=== PATIENT | female | born 1990 | race Caucasian/White ===

== ENCOUNTER 2024-11-18 20:37 | Emergency (ER) | payer SELFPAY ==
[2024-11-18 20:40] VITALS: BP 142/85
[2024-11-18 21:23] LABS: Hematocrit 17.6 % (37.0-47.0); Hemoglobin 4.9 g/dL (12.0-16.0); Mean Corp Hgb Conc. 27.8 g/dL (33.0-37.0); Mean Corpuscular Volume 67.4 fL (81.0-99.0); Nucleated Red Blood Cells % 0 %; Platelet Count 228 10^3/uL (130-400); Red Cell Dist. Width 25.3 % (11.5-14.5)
[2024-11-18 21:37] VITALS: BP 108/68
[2024-11-18 21:38] VITALS: BMI 31.9
[2024-11-18 21:39] LABS: HCG, Serum Qualitative Screen Negative
[2024-11-18 21:41] LABS: ALT (SGPT) 16 U/L (0-35); AST (SGOT) 24 U/L (14-36); Albumin 4.6 g/dl (3.5-5.0); Alkaline Phosphatase 56 U/L (38-126); Blood Urea Nitrogen 11 mg/dl (7-17); Calcium 9.6 mg/dl (8.4-10.2); Carbon Dioxide 26 mmol/L (22-30); Chloride 102 mmol/L (98-107); Estimated Creatinine Clearance > 125 ml/min; Glucose 93 mg/dl (70-99); Potassium 3.8 mmol/L (3.5-5.1); Sodium 135 mmol/L (135-145); Total Protein 7.7 g/dl (6.3-8.2); eGFR > 60.00
[2024-11-18 22:00] VITALS: BP 117/67
--- NOTE | 2024-11-18 22:09 | ED.GENMED ---
History of Present Illness
General
Chief Complaint: Abnormal Lab Value
Source: patient
Exam Limitations: none
Time Seen by Provider: 11/18/24 21:26
Nursing documentation reviewed up to this point in time: agreed with
History of Present Illness
History of Present Illness:
34-year-old female long history of iron deficiency anemia last transfused 8 years ago had been on iron infusions which she stopped due to allergic reactions, had been on p.o. iron which she stopped has been vegan for some time, she is felt fatigued
for months, had blood work Thursday as part of the health screening for a new job, hemoglobin was low given the ER to be evaluated denies rectal bleeding, denies any excessive menses, has a headache feels little dizzy, no chest pain no shortness of
breath, has required transfusions in the past previously seen by tube winder hand at [facility] does not see them currently, no chest pains no syncope denies
Past History
Past History
ED Past Medical History: Other (Iron deficiency anemia, prior PE not anticoagulated currently)
Social History
Tobacco: Non-smoker
Alcohol: None
Drug: None
Personal:
Living: with family
Employment: Employed
Review of Systems
Review of Systems
All Other Systems: Not applicable
Constitutional: Reports fatigue; Denies fever
EENT: Reports no symptoms
Respiratory: Reports no symptoms; Denies trouble breathing
Cardiac: Denies chest pain, diaphoresis, palpitations or syncope
ABD/GI: Denies abdominal pain, bloody stools or black stools
: Denies bleeding
Neurological: Reports dizzy and headache
Endocrine: Reports no symptoms
Hematologic/Lymphatic: Denies bleeding or bruising
Psychiatric: Reports no symptoms
Phy Exam
Physical Exam
Physical Exam:
Physical Exam
General: Pale appearing female
Neck: No jaundice
Heart: s1/s2 regular rate and rhythm, no murmur. equal radial pulses.
Lungs: no acute respiratory distress. clear bilaterally
Abdomen: Nontender
Neuro: alert and oriented. no focal neurological deficits
Skin: no rash
Psychiatric: well kept. interactive and cooperative
Extremities: no edema.
Course
Orders/Labs/Results
Orders:
Orders
11/18/24 20:48
Test Result ONCE
11/18/24 20:59
Type+Screen Urgent
CBC/With Diff [Complete Blood Count/With Diff] Urgent
CMP [Comprehensive Metabolic Panel] Urgent
Ferritin Urgent
Comment: ADD ON
Folate Urgent
Comment: ADD ON
HCG, Serum Qualitative Screen Urgent
Iron Urgent
Total Iron Binding Urgent
Vitamin B12 Urgent
Comment: ADD ON
11/18/24 21:57
Add On- LAB Urgent
Tests Added?: iron, tibc, ferritin, b12, folate
11/18/24 21:58
Blood Bank Products [* Blood Bank Products] Urgent
's Orders: michelle
Blood Bank Products: *Packed RBC Leuko(PRBC's)
Quantity: 2
Transfuse Today: Yes
Reason: Anemia
Abnormal Lab Results
11/18/24
20:59
RBC 2.61 L 10^6/uL
(4.20-5.40)
Hgb 4.9 L* g/dL
(12.0-16.0)
Hct 17.6 L* %
(37.0-47.0)
MCV 67.4 L fL
(81.0-99.0)
MCH 18.8 L pg
(27.0-31.0)
MCHC 27.8 L g/dL
(33.0-37.0)
RDW 25.3 H %
(11.5-14.5)
% Saturation 14 L %
(20-50)
Ferritin 3.7 L ng/ml
(6.24-137)
Crossmatch IS Only See Detail
11/18/24 20:59
11/18/24 20:59
Vital Signs
Initial and Last Documented VS:
Initial Vital Signs
Temp Pulse Resp BP Pulse Ox
98.8 F 98 18 142/85 100
11/18/24 20:40 11/18/24 20:40 11/18/24 20:40 11/18/24 20:40 11/18/24 20:40
Last Documented Vital Signs
Temp Pulse Resp BP Pulse Ox
97.9 F 72 21 104/62 99
11/19/24 01:34 11/19/24 01:53 11/19/24 01:53 11/19/24 02:01 11/19/24 02:01
MDM/Problems Addressed
Differential Diagnosis Includes:
Microcytic anemia, excessive menses, GI bleeding, dietary lack of protein
MDM/Problems Addressed:
Anemia
Chronic conditions affecting care:
Anemia
Acute Exacerbation and/or Progression of Chronic Illness:
Anemia
*Pulse Oximetry
SaO2: 100
Oxygen Mode of Delivery: Room air
Patient hypoxic: no
*Critical Care Note
Total Time (30-74mins, 75-104mins- exclusive of procedures): Not Applicable
Update Note
Update Note:
10:15 PM update labs are noted microcytic suspect iron deficient Long conversation with patient no excessive bleeding, this appears to be a chronic issue, she consents to blood transfusion and she would like to go home which I think is reasonable
assuming she feels okay after the transfusion, tells me she had an allergic reaction to IV iron, refer her her see hematology nonurgently after discharge
ED Attending Note
-
Portions of this chart may have been created with voice recognition software.� Occasional wrong word or��sound alike� substitutions may have occurred due to the inherent limitations of voice recognition software.
Discharge Plan
Departure
Patient Disposition: Home (Routine Discharge)
Date of Disposition: 11/19/24
Time of Disposition: 02:04
Patient with high blood pressure during this ER visit?: No
Condition: Good
Discharge Problem:
Anemia
Instructions: Anemia in adults, possibly from low iron - ED (DC)
Referrals:
[facility] [Provider Group] - Follow up in 1 week
Rowena Rosario MD [Active, Hematology / Oncology] - Next open appointment
NONE,* [Family Provider, Internal Medicine]
Interventions
Interventions:
*Risk Screen - Suicide Last Done: 11/18/24 20:40
*General Assessment Last Done: 11/18/24 20:40
*Neglect/Abuse Screening Last Done: 11/18/24 20:40
*ED- Fall Risk Assessment Last Done: 11/18/24 21:38
*ED COVID-19 Vaccine History Last Done: 11/18/24 21:38
Discharge Date and Time
Print Language: SALVADOREAN
[2024-11-18 22:31] LABS: Iron 65 ug/dl (37-170)
[2024-11-18 22:40] VITALS: BP 177/67
[2024-11-18 22:41] LABS: Total Iron Binding Capacity 461 ug/dl (265-497)
[2024-11-18 23:00] VITALS: BP 107/73
[2024-11-18 23:04] LABS: Anisocytosis 1+; Hypochromasia 3+; Macrocytosis 1+; Normal RBC Morphology No; Ovalocytes 1+; Polychromasia Occasional; Stomatocytes Occasional
[2024-11-18 23:57] LABS: Ferritin 3.7 ng/ml (6.24-137)
[2024-11-19] VITALS (8 sets, daily range): BP systolic 103–114; BP diastolic 59–67
[2024-11-19 00:28] LABS: Folate 8.8 ng/ml (2.76-20); Vitamin B12 273 pg/ml (239-931)
--- NOTE | 2024-11-19 03:35 | PTCARENOTE ---
blood transfusion completed with pink paper
== END 2024-11-19 03:42 | disposition home or self-care (01) ==
LOC: EMR 20:37
PROVIDERS: EMERGENCY PHYSICIAN Emergency Medicine
DX: D64.9 Anemia, unspecified (principal); Z86.711 Personal history of pulmonary embolism
CPT/HCPCS: 99283; 36430; 80053; 82607; 82728; 82746; 83540; 83550; 84703; 85025; 86850; 86900; 86901; 86920; P9016